=== PATIENT | female | born 1970 | race Two or more races ===

== ENCOUNTER 2021-08-23 10:31 | Outpatient (REF) | payer OTHER, SELFPAY ==
--- NOTE | ~2021-08-23 | MM_ITS ---
EXAMINATION: MM SCREENING DIGITAL BREAST TOMOSYNTHESIS, BILATERAL CLINICAL INFORMATION: Screening. Asymptomatic. The lifetime risk of breast cancer based on the Tyrer-Cuzick Model is 4%. COMPARISON: Outside mammography: 03/10/2012, 12/14/2010 ([facility]). TECHNIQUE: Digital breast tomosynthesis is performed in both the craniocaudal and mediolateral oblique views along with computer-aided detection (CAD). Synthesized 2D images are generated from the tomosynthesis. Additional exaggerated right CC view is provided. FINDINGS: There are scattered areas of fibroglandular density (ACR BI-RADS breast composition Category b). There are no significant masses, abnormal calcifications, or other abnormalities. Parenchymal pattern is similar to prior outside exams. No developing density or interval architectural abnormality. No significant changes. MM/MM tomosynthesis screening BI IMPRESSION: No mammographic evidence of malignancy. ASSESSMENT: BI-RADS 1: Negative RECOMMENDATION: Routine annual mammography screening. This patient's information was entered into a reminder system with a target due date for their next mammogram.
== END 2021-08-23 10:32 | disposition home or self-care (01) ==
LOC: HO.MAMMO 10:31
PROVIDERS: PCP Internal Medicine; Visit Provider Internal Medicine
DX: Z12.31 Encounter for screening mammogram for malignant neoplasm of breast (principal)
CPT/HCPCS: 77063; 77067

== ENCOUNTER 2021-09-14 07:22 | Outpatient (REF) | payer OTHER, SELFPAY ==
[2021-09-14 08:30] LABS: Estimated Average Glucose 137 mg/dL; Hemoglobin A1c % 6.4 %
[2021-09-14 08:51] LABS: Alanine Aminotransferase 16 U/L (0-31); Albumin Level 4.2 g/dL (3.5-5.0); Alkaline Phosphatase 87 U/L (39-117); Anion Gap 14 (12-20); Aspartate Amino Transferase 17 U/L (5-31); Bilirubin Total 0.5 mg/dL (0.0-1.0); Blood Urea Nitrogen 13 mg/dL (9-16); Calcium 9.2 mg/dL (8.4-10.2); Carbon Dioxide 24 mmol/L (22-29); Chloride 102 mmol/L (96-108); Estimated Glomerular Filt Rate > 60; Glucose Random 123 mg/dL (60-115); Potassium 4.7 mmol/L (3.3-5.1); Sodium 135 mmol/L (135-145); Total Protein 7.9 g/dL (6.5-8.0)
[2021-09-14 09:12] LABS: Vitamin B12 1011 pg/mL (200-900)
[2021-09-14 09:56] LABS: Creatinine Urine 52.83 mg/dL; Microalbumin Urine < 5.0 mg/L
== END 2021-09-14 07:23 | disposition home or self-care (01) ==
LOC: HO.LAB 07:22
PROVIDERS: PCP Internal Medicine; Visit Provider Internal Medicine
DX: Z00.00 Encounter for general adult medical examination without abnormal findings (principal); E03.9 Hypothyroidism, unspecified; E11.9 Type 2 diabetes mellitus without complications; H81.11 Benign paroxysmal vertigo, right ear; L50.8 Other urticaria
CPT/HCPCS: 36415; 80053; 82043; 82607; 83036; 84443; 86003

== ENCOUNTER 2021-09-18 11:41 | Outpatient (REF) | payer OTHER, SELFPAY ==
--- NOTE | ~2021-09-18 | XR_ITS ---
EXAMINATION: XR FOOT, RIGHT CLINICAL INFORMATION: Foot pain. Rule out metatarsal fracture. COMPARISON: None. TECHNIQUE: AP, lateral, and oblique views of the right foot. FINDINGS: There is no evidence of acute fracture or dislocation of the right foot. There is some cortical thickening with smooth periosteal reaction about the shaft of the 4th metatarsal which may be related to chronic stress fracture. Joint spaces are maintained. No radiopaque foreign body identified. Calcaneal spurs at the sites of insertion of Achilles and plantar tendons are evident. XR/XR foot RT min 3V IMPRESSION: No definite acute fracture identified. Evidence for possible stress fracture involving the 4th metatarsal. Calcaneal spurs.
== END 2021-09-18 11:42 | disposition home or self-care (01) ==
LOC: HO.XRAY 11:41
PROVIDERS: PCP Internal Medicine; Visit Provider Internal Medicine
DX: M79.671 Pain in right foot (principal)
CPT/HCPCS: 73630

== ENCOUNTER 2021-10-12 07:52 | Outpatient (REF) | payer OTHER, SELFPAY ==
--- NOTE | ~2021-10-12 | XR_ITS ---
EXAMINATION: XR FOOT, RIGHT CLINICAL INFORMATION: Right foot pain COMPARISON: None TECHNIQUE: AP, lateral, and oblique views of the right foot. FINDINGS: There is no visible acute fracture, dislocation or subluxation seen. No bony erosive changes. The ankle mortise and subtalar joints are normal. There is a small calcaneal heel and retrocalcaneal enthesophyte. The soft tissues are normal. XR/XR foot RT min 3V IMPRESSION: No acute process. Small calcaneal heel and retrocalcaneal enthesophytes.
== END 2021-10-12 07:53 | disposition home or self-care (01) ==
LOC: HO.HOSX 07:52
PROVIDERS: Visit Provider Physician Assistant
DX: M79.671 Pain in right foot (principal)
CPT/HCPCS: 73630; 99202

== ENCOUNTER 2022-01-18 08:05 | Outpatient (REF) | payer OTHER, SELFPAY ==
[2022-01-18 08:58] LABS: Estimated Average Glucose 157 mg/dL; Hemoglobin A1c % 7.1 %
[2022-01-18 09:37] LABS: Alanine Aminotransferase 17 U/L (0-31); Albumin Level 4.1 g/dL (3.5-5.0); Alkaline Phosphatase 80 U/L (39-117); Anion Gap 12 (12-20); Aspartate Amino Transferase 15 U/L (5-31); Bilirubin Total 0.7 mg/dL (0.0-1.0); Blood Urea Nitrogen 13 mg/dL (9-16); Calcium 9.7 mg/dL (8.4-10.2); Carbon Dioxide 28 mmol/L (22-29); Chloride 103 mmol/L (96-108); Cholesterol 184 mg/dL; Estimated Glomerular Filt Rate > 60; Glucose Random 156 mg/dL (60-115); HDL Cholesterol 56 mg/dL; LDL Cholesterol Calculated 96 mg/dl; Potassium 4.8 mmol/L (3.3-5.1); Sodium 138 mmol/L (135-145); Thyroid Stimulating Hormone 0.21 uIU/mL (0.32-4.0); Total Protein 7.7 g/dL (6.5-8.0); Triglycerides 164 mg/dL
[2022-01-18 09:50] LABS: Folate 16.5 ng/mL (> or = 4.0); Vitamin B12 1193 pg/mL (200-900)
== END 2022-01-18 08:06 | disposition home or self-care (01) ==
LOC: HO.LAB 08:05
PROVIDERS: PCP Internal Medicine; Visit Provider Internal Medicine
DX: E03.9 Hypothyroidism, unspecified (principal); E11.9 Type 2 diabetes mellitus without complications; M25.571 Pain in right ankle and joints of right foot; Z68.26 Body mass index [BMI] 26.0-26.9, adult
CPT/HCPCS: 36415; 80053; 80061; 82607; 82746; 83036; 84443

== ENCOUNTER → 2022-02-07 14:08 | Outpatient (BNVA) | payer OTHER, SELFPAY | PROVIDERS: PCP Internal Medicine; Visit Provider Internal Medicine | DX: Z01.818 Encounter for other preprocedural examination (principal) | CPT/HCPCS: 99202 ==

== ENCOUNTER 2023-03-22 08:23 | Outpatient (REF) | payer OTHER, SELFPAY ==
[2023-03-22 08:37] LABS: MANUAL DIFF FLAG NO
[2023-03-22 08:45] LABS: Basophils Absolute Auto 0.1 X10*3/uL (0.0-0.2); Basophils Percent Auto 1.2 % (0-2); Eosinophils Absolute Auto 0.2 X10*3/uL (0.0-0.4); Eosinophils Percent Auto 4.1 % (0-4); Hematocrit 37.8 % (37.0-47.0); Hemoglobin 12.2 g/dl (12.0-16.0); Imm Gran Abs Auto 0.02 X10*3/uL (0.00-0.03); Imm Gran Pct Auto 0.3 % (0.0-0.4); Lymphocytes Absolute Auto 1.9 X10*3/uL (1.2-4.9); Lymphocytes Percent Auto 31.8 % (20-40); Mean Corpuscular HGB Conc 32.3 g/dl (31.0-35.0); Mean Corpuscular Hemoglobin 26.1 pg (27.0-33.0); Mean Corpuscular Volume 80.8 fL (80.0-98.0); Mean Platelet Volume 8.9 fL (9.4-12.3); Monocytes Absolute Auto 0.4 X10*3/uL (0.1-1.2); Monocytes Percent Auto 6.7 % (2-11); Neutrophils Absolute Auto 3.2 x10*3/uL (2.0-8.3); Neutrophils Percent Auto 55.9 % (45-73); Platelet Count 388 X10*3/uL (160-400); Red Blood Count 4.68 X10*6/uL (4.20-5.50); Red Cell Distribution Width 13.2 % (11.0-16.0); White Blood Count 5.8 X10*3/uL (4.8-10.8)
[2023-03-22 08:54] LABS: Estimated Average Glucose 140 mg/dL; Hemoglobin A1c % 6.5 % (<6.0)
[2023-03-22 09:17] LABS: Alanine Aminotransferase 16 U/L (0-31); Albumin Level 4.3 g/dL (3.5-5.0); Alkaline Phosphatase 83 U/L (39-117); Anion Gap 13 (12-20); Aspartate Amino Transferase 20 U/L (5-31); Bilirubin Total 0.7 mg/dL (0.0-1.0); Blood Urea Nitrogen 12 mg/dL (9-16); Calcium 9.8 mg/dL (8.4-10.2); Carbon Dioxide 27 mmol/L (22-29); Chloride 104 mmol/L (96-108); Cholesterol 209 mg/dL (<200); Estimated Glomerular Filt Rate > 60; Glucose Random 128 mg/dL (60-115); HDL Cholesterol 65 mg/dL (>40); LDL Cholesterol Calculated 109 mg/dL (<100); Potassium 4.3 mmol/L (3.3-5.1); Sodium 140 mmol/L (135-145); Total Protein 8.5 g/dL (6.5-8.0); Triglycerides 178 mg/dL (<150)
[2023-03-22 09:39] LABS: Creatinine Urine 120.25 mg/dL; Microalbum/Creatinine Ratio Ur 4.9 ug/mg cr (<30)
== END 2023-03-22 08:24 | disposition home or self-care (01) ==
LOC: HO.LAB 08:23
PROVIDERS: PCP Internal Medicine; Visit Provider Internal Medicine
DX: E03.9 Hypothyroidism, unspecified (principal); E11.9 Type 2 diabetes mellitus without complications; Z91.199 Patient's noncompliance with other medical treatment and regimen due to unspecified reason
CPT/HCPCS: 36415; 80053; 80061; 82043; 82570; 83036; 85025; 87086